=== PATIENT | male | born 1960 | race Caucasian/White ===

== ENCOUNTER 2019-02-14 10:54 | Emergency (ER) | payer OTHER ==
[~2019-02-14] VITALS: Ht 170.2 cm; Wt 77.1 kg
[2019-02-14] MEDS ORDERED: NORCO 5-325 TA1 EAC1 PO (13:05)
[2019-02-14] MEDS ORDERED: KEFLEX500 M1 PO (13:05)
[2019-02-14 14:05] VITALS: BP 135/75
== END 2019-02-14 14:05 | disposition home or self-care (01) ==
LOC: ER 10:54
DX: S52.592A Other fractures of lower end of left radius, initial encounter for closed fracture (principal); F17.210 Nicotine dependence, cigarettes, uncomplicated; Z88.0 Allergy status to penicillin; W26.8XXA Contact with other sharp object(s), not elsewhere classified, initial encounter; Y93.89 Activity, other specified; Y92.89 Other specified places as the place of occurrence of the external cause; Y99.0 Civilian activity done for income or pay